=== PATIENT | male | born 1945 | race Caucasian/White ===

== ENCOUNTER 2024-11-07 13:05 | Emergency (ER) | payer MEDICARE ==
[~2024-11-07] VITALS: Ht 175.3 cm; Wt 63.5 kg
[2024-11-07] MEDS ORDERED: Prednisone10 MG PO (13:52)
[2024-11-07] MEDS ORDERED: CEFA500ER (13:52)
[2024-11-07] MEDS ORDERED: DUPIXENT300 MG/21 (13:53)
[2024-11-07 14:19] LABS: BASOPHILS ABSOLUTE AUTO 0.04 K/mm3 (0.00-0.23); BASOPHILS PERCENT AUTO 1 % (0-2); EOSINOPHILS ABSOLUTE AUTO 0.43 K/mm3 (0.00-0.68); EOSINOPHILS PERCENT AUTO 6 % (0-6); Hematocrit 42.7 % (37.0-53.0); Hemoglobin 13.7 g/dL (13.5-17.5); IMMATURE GRAN ABSOLUTE AUTO 0.03 K/mm3 (0.00-0.10); IMMATURE GRAN PERCENT AUTO 0 % (0-1); LYMPHOCYTES ABSOLUTE AUTO 1.49 K/mm3 (0.84-5.20); LYMPHOCYTES PERCENT AUTO 20 % (21-46); MONOCYTES ABSOLUTE AUTO 0.84 K/mm3 (0.16-1.47); MONOCYTES PERCENT AUTO 11 % (4-13); Mean Corpuscular HGB 29.8 pg (26.0-34.0); Mean Corpuscular HGB Conc 32.1 g/dL (31.5-36.5); Mean Corpuscular Volume 93 fL (80-100); Mean Platelet Volume 9.5 fL (9.1-12.4); NEUTROPHILS ABSOLUTE AUTO 4.63 K/mm3 (1.96-9.15); NEUTROPHILS PERCENT AUTO 62 % (41-73); Platelet Count 231 K/mm3 (150-400); RDW Coefficient Variation 14.9 % (11.7-14.2); RDW Standard Deviation 51.4 fL (35.1-46.3); Red Blood Cell Count 4.59 M/mm3 (4.30-5.90); White Blood Cell Count 7.46 K/mm3 (4.00-11.30)
[2024-11-07 14:55] LABS: Albumin, Blood 2.7 g/dL (3.4-5.0); Albumin/Globulin Ratio 0.5 (0.8-1.8); Bilirubin, Total 0.8 mg/dL (0.1-1.0); Creatinine, Blood 1.07 mg/dL (0.60-1.20); Globulin, Blood 5.5 g/dL (2.2-4.0); Potassium, Blood 3.8 mmol/L (3.5-5.5); Total Protein, Blood 8.2 g/dL (6.4-8.2)
== END 2024-11-07 15:24 | disposition home or self-care (01) ==
LOC: ER 13:05
PROVIDERS: Student in an Organized Health Care Education/Training Program
DX: L12.0 Bullous pemphigoid (principal)
CPT/HCPCS: 80053; 85025; 99282

== ENCOUNTER 2024-11-09 02:46 | Day surgery (SDC) | payer MEDICARE ==
[~2024-11-09 02:46] MED LIST: CEFA500ER; DUPIXENT300 MG/21; Prednisone10 MG PO
== END 2024-11-09 23:00 | disposition home or self-care (01) ==
LOC: WOUND 02:46
DX: L97.812 Non-pressure chronic ulcer of other part of right lower leg with fat layer exposed (principal); L97.512 Non-pressure chronic ulcer of other part of right foot with fat layer exposed; L12.0 Bullous pemphigoid; F17.200 Nicotine dependence, unspecified, uncomplicated
CPT/HCPCS: G0463

== ENCOUNTER 2024-11-10 15:52 | Emergency (ER) | payer MEDICARE ==
[~2024-11-10] VITALS: Ht 175.3 cm; Wt 62.6 kg
[2024-11-10] MEDS ORDERED: OxyCODONE 7.5 mg/Acetam 325 mg TABLET PO ONE (16:35)
== END 2024-11-10 16:55 | disposition home or self-care (01) ==
LOC: ER 15:52
DX: L12.0 Bullous pemphigoid (principal); Z79.899 Other long term (current) drug therapy
CPT/HCPCS: 99282; A9270

== ENCOUNTER 2024-11-15 02:25 | Day surgery (SDC) | payer MEDICARE | END 2024-11-15 23:41 | disposition home or self-care (01) | LOC: WOUND 02:25 | DX: L97.812 Non-pressure chronic ulcer of other part of right lower leg with fat layer exposed (principal); L97.512 Non-pressure chronic ulcer of other part of right foot with fat layer exposed; L12.0 Bullous pemphigoid ==

== ENCOUNTER 2024-11-16 10:52 | Day surgery (SDC) | payer MEDICARE | END 2024-11-16 23:00 | disposition home or self-care (01) | LOC: WOUND 10:52 | DX: L97.812 Non-pressure chronic ulcer of other part of right lower leg with fat layer exposed (principal); L12.0 Bullous pemphigoid; Z79.2 Long term (current) use of antibiotics; Z79.52 Long term (current) use of systemic steroids | CPT/HCPCS: G0463 ==

== ENCOUNTER 2024-11-21 01:58 | Day surgery (SDC) | payer MEDICARE ==
[2024-11-21] MEDS ORDERED: Lidocaine HCl 4% Cream 5 GM ONE (14:46)
== END 2024-11-21 23:25 | disposition home or self-care (01) ==
LOC: WOUND 01:58
DX: L97.812 Non-pressure chronic ulcer of other part of right lower leg with fat layer exposed (principal); L97.112 Non-pressure chronic ulcer of right thigh with fat layer exposed; L97.512 Non-pressure chronic ulcer of other part of right foot with fat layer exposed; L12.0 Bullous pemphigoid
CPT/HCPCS: A9270; G0463

== ENCOUNTER 2024-12-12 03:30 | Day surgery (SDC) | payer MEDICARE | END 2024-12-12 23:49 | disposition home or self-care (01) | LOC: WOUND 03:30 | DX: L97.812 Non-pressure chronic ulcer of other part of right lower leg with fat layer exposed (principal); L97.512 Non-pressure chronic ulcer of other part of right foot with fat layer exposed; L12.0 Bullous pemphigoid | CPT/HCPCS: G0463 ==

== ENCOUNTER 2025-01-02 08:00 | Day surgery (SDC) | payer MEDICARE | END 2025-01-02 23:00 | disposition home or self-care (01) | LOC: WOUND | DX: L97.812 Non-pressure chronic ulcer of other part of right lower leg with fat layer exposed (principal); L97.512 Non-pressure chronic ulcer of other part of right foot with fat layer exposed; L97.112 Non-pressure chronic ulcer of right thigh with fat layer exposed; L12.0 Bullous pemphigoid | CPT/HCPCS: G0463 ==

== ENCOUNTER 2025-01-09 05:06 | Day surgery (SDC) | payer MEDICARE | END 2025-01-09 23:00 | disposition home or self-care (01) | LOC: WOUND 05:06 | DX: L97.812 Non-pressure chronic ulcer of other part of right lower leg with fat layer exposed (principal); L97.512 Non-pressure chronic ulcer of other part of right foot with fat layer exposed; L97.112 Non-pressure chronic ulcer of right thigh with fat layer exposed; L12.0 Bullous pemphigoid | CPT/HCPCS: G0463 ==

== ENCOUNTER 2025-01-16 00:33 | Day surgery (SDC) | payer MEDICARE | END 2025-01-16 23:00 | disposition home or self-care (01) | LOC: WOUND 00:33 | DX: L97.812 Non-pressure chronic ulcer of other part of right lower leg with fat layer exposed (principal); L97.512 Non-pressure chronic ulcer of other part of right foot with fat layer exposed; L97.112 Non-pressure chronic ulcer of right thigh with fat layer exposed; L12.0 Bullous pemphigoid | CPT/HCPCS: G0463 ==

== ENCOUNTER 2025-01-23 01:25 | Day surgery (SDC) | payer MEDICARE | END 2025-01-23 23:00 | disposition home or self-care (01) | LOC: WOUND 01:25 | DX: L97.812 Non-pressure chronic ulcer of other part of right lower leg with fat layer exposed (principal); L97.312 Non-pressure chronic ulcer of right ankle with fat layer exposed; L12.0 Bullous pemphigoid | CPT/HCPCS: G0463 ==

== ENCOUNTER 2025-01-30 00:48 | Day surgery (SDC) | payer MEDICARE | END 2025-01-30 23:00 | disposition home or self-care (01) | LOC: WOUND 00:48 | DX: L97.812 Non-pressure chronic ulcer of other part of right lower leg with fat layer exposed (principal); L97.512 Non-pressure chronic ulcer of other part of right foot with fat layer exposed; L97.112 Non-pressure chronic ulcer of right thigh with fat layer exposed; L12.0 Bullous pemphigoid | CPT/HCPCS: G0463 ==

== ENCOUNTER 2025-02-13 00:49 | Day surgery (SDC) | payer MEDICARE | END 2025-02-13 23:00 | disposition home or self-care (01) | LOC: WOUND 00:49 | DX: L97.812 Non-pressure chronic ulcer of other part of right lower leg with fat layer exposed (principal); L97.312 Non-pressure chronic ulcer of right ankle with fat layer exposed; L08.89 Other specified local infections of the skin and subcutaneous tissue; L12.0 Bullous pemphigoid | CPT/HCPCS: G0463 ==

== ENCOUNTER 2025-02-27 00:37 | Day surgery (SDC) | payer MEDICARE | END 2025-02-27 23:30 | disposition home or self-care (01) | LOC: WOUND 00:37 | DX: L97.812 Non-pressure chronic ulcer of other part of right lower leg with fat layer exposed (principal); L97.312 Non-pressure chronic ulcer of right ankle with fat layer exposed; L08.89 Other specified local infections of the skin and subcutaneous tissue; L12.0 Bullous pemphigoid | CPT/HCPCS: G0463 ==

== ENCOUNTER 2025-03-20 02:33 | Day surgery (SDC) | payer MEDICARE | END 2025-03-20 23:00 | disposition home or self-care (01) | LOC: WOUND 02:33 | DX: L97.812 Non-pressure chronic ulcer of other part of right lower leg with fat layer exposed (principal); L97.512 Non-pressure chronic ulcer of other part of right foot with fat layer exposed; L97.112 Non-pressure chronic ulcer of right thigh with fat layer exposed; L12.0 Bullous pemphigoid | CPT/HCPCS: G0463 ==

== ENCOUNTER 2025-03-27 01:13 | Day surgery (SDC) | payer MEDICARE | END 2025-03-27 22:00 | disposition home or self-care (01) | LOC: WOUND 01:13 | DX: L97.812 Non-pressure chronic ulcer of other part of right lower leg with fat layer exposed (principal); L12.0 Bullous pemphigoid | CPT/HCPCS: G0463 ==

== ENCOUNTER 2025-04-03 01:26 | Day surgery (SDC) | payer MEDICARE | END 2025-04-03 23:00 | disposition home or self-care (01) | LOC: WOUND 01:26 | DX: L97.812 Non-pressure chronic ulcer of other part of right lower leg with fat layer exposed (principal); L97.512 Non-pressure chronic ulcer of other part of right foot with fat layer exposed; L97.112 Non-pressure chronic ulcer of right thigh with fat layer exposed; L12.0 Bullous pemphigoid | CPT/HCPCS: G0463 ==

== ENCOUNTER 2025-05-01 01:10 | Day surgery (SDC) | payer MEDICARE ==
[2025-05-01] MEDS ORDERED: Lidocaine HCl 4% Cream 5 GM ONE (13:00)
== END 2025-05-01 23:00 | disposition home or self-care (01) ==
LOC: WOUND 01:10
DX: L97.812 Non-pressure chronic ulcer of other part of right lower leg with fat layer exposed (principal); L97.312 Non-pressure chronic ulcer of right ankle with fat layer exposed; L12.0 Bullous pemphigoid
CPT/HCPCS: A9270; G0463

== ENCOUNTER 2025-05-23 01:38 | Day surgery (SDC) | payer MEDICARE | END 2025-05-23 22:58 | disposition home or self-care (01) | LOC: WOUND 01:38 | DX: L12.0 Bullous pemphigoid (principal); L97.812 Non-pressure chronic ulcer of other part of right lower leg with fat layer exposed; L97.312 Non-pressure chronic ulcer of right ankle with fat layer exposed | CPT/HCPCS: G0463 ==

== ENCOUNTER 2025-06-06 02:21 | Day surgery (SDC) | payer MEDICARE ==
[2025-06-06] MEDS ORDERED: Lidocaine HCl 4% Cream 5 GM ONE (13:24)
== END 2025-06-06 23:30 | disposition home or self-care (01) ==
LOC: WOUND 02:21
DX: L97.812 Non-pressure chronic ulcer of other part of right lower leg with fat layer exposed (principal); L97.312 Non-pressure chronic ulcer of right ankle with fat layer exposed; L12.0 Bullous pemphigoid
CPT/HCPCS: A9270; G0463

== ENCOUNTER → 2025-07-03 | Day surgery (SDC) | payer MEDICARE | LOC: WOUND 15:04 | DX: L12.0 Bullous pemphigoid (principal) | CPT/HCPCS: G0463 ==